=== PATIENT | male | born 1960 | race Asian ===

== ENCOUNTER 2016-10-24 14:50 | Outpatient (CLI) | END 2016-10-24 14:51 | disposition home or self-care (01) ==

== ENCOUNTER 2016-10-30 12:35 | Outpatient (CLI) | payer OTHER | END 2016-10-30 12:36 | disposition home or self-care (01) | DX: D68.59 Other primary thrombophilia (principal) ==

== ENCOUNTER 2016-12-23 08:00 | Outpatient (CLI) | payer OTHER | END 2016-12-23 08:01 | disposition home or self-care (01) | DX: D68.59 Other primary thrombophilia (principal) ==

== ENCOUNTER 2017-03-04 14:27 | Outpatient (CLI) | payer OTHER | END 2017-03-04 14:28 | disposition home or self-care (01) | DX: D68.59 Other primary thrombophilia (principal) ==

== ENCOUNTER 2017-05-23 14:43 | Outpatient (CLI) | payer OTHER | END 2017-05-23 14:44 | disposition home or self-care (01) | LOC: LAB.F 14:43 | PROVIDERS: ATTEND Family Medicine | DX: D68.59 Other primary thrombophilia (principal) | CPT/HCPCS: 85610 ==

== ENCOUNTER 2017-08-11 08:00 | Outpatient (CLI) | payer OTHER | END 2017-08-11 08:01 | disposition home or self-care (01) | LOC: LAB.S 08:00 | PROVIDERS: ATTEND Family Medicine | DX: D68.59 Other primary thrombophilia (principal) | CPT/HCPCS: 85610 ==

== ENCOUNTER 2017-10-24 08:00 | Outpatient (CLI) | payer OTHER | END 2017-10-24 08:01 | disposition home or self-care (01) | LOC: LAB.F 08:00 | PROVIDERS: ATTEND Family Medicine | DX: D68.59 Other primary thrombophilia (principal) | CPT/HCPCS: 85610 ==

== ENCOUNTER 2017-12-01 10:38 | Outpatient (CLI) | payer OTHER | END 2017-12-01 10:39 | disposition home or self-care (01) | LOC: LAB.S 10:38 | PROVIDERS: ATTEND Family Medicine | DX: D68.59 Other primary thrombophilia (principal) | CPT/HCPCS: 85610 ==

== ENCOUNTER 2017-12-15 08:00 | Outpatient (CLI) | payer OTHER | END 2017-12-15 08:01 | disposition home or self-care (01) | LOC: LAB.S 08:00 | PROVIDERS: ATTEND Family Medicine | DX: D68.59 Other primary thrombophilia (principal) | CPT/HCPCS: 85610 ==

== ENCOUNTER 2018-01-05 11:22 | Outpatient (CLI) | payer OTHER | END 2018-01-05 11:23 | disposition home or self-care (01) | LOC: LAB.S 11:22 | PROVIDERS: ATTEND Family Medicine | DX: D68.59 Other primary thrombophilia (principal) | CPT/HCPCS: 85610 ==

== ENCOUNTER 2018-01-07 08:00 | Outpatient (CLI) | payer OTHER ==
[2018-01-07 12:09] LABS: BASOPHILS # (AUTO) 0.1 10^3/uL (0.0-0.1); BASOPHILS % (AUTO) 1.3 %; EOSINOPHILS # (AUTO) 0.6 10^3/uL (0.0-0.7); EOSINOPHILS % (AUTO) 9.3 %; HGB - HEMOGLOBIN 12.3 g/dL (14.0-18.0); LYMPHOCYTES # (AUTO) 1.4 10^3/uL (1.5-3.5); LYMPHOCYTES % (AUTO) 22.3 %; MEAN CORPUSCULAR HEMOGLOBIN 28.5 pg (27.0-31.0); MEAN CORPUSCULAR HGB CONC 33.3 g/dL (32.0-36.0); MEAN CORPUSCULAR VOLUME 85.7 fL (80.0-94.0); MEAN PLATELET VOLUME 8.5 fL (7.4-11.4); MONOCYTES # (AUTO) 0.5 10^3/uL (0.0-1.0); NEUTROPHILS # (AUTO) 3.9 10^3/uL (1.5-6.6); NEUTROPHILS % (AUTO) 60.1 %; PLT - PLATELET COUNT 208 10^3/uL (130-450); RED CELL DISTRIBUTION WIDTH 14.7 % (12.0-15.0); WHITE BLOOD COUNT 6.5 x10^3/uL (4.8-10.8)
== END 2018-01-07 08:01 | disposition home or self-care (01) ==
LOC: LAB.R 08:00
PROVIDERS: ATTEND Internal Medicine
DX: L03.115 Cellulitis of right lower limb (principal)
CPT/HCPCS: 80048; 85025; 85651; 86140

== ENCOUNTER 2018-01-09 08:00 | Outpatient (CLI) | payer OTHER | END 2018-01-09 08:01 | disposition home or self-care (01) | LOC: LAB.F 08:00 | PROVIDERS: ATTEND Family Medicine | DX: D68.59 Other primary thrombophilia (principal) | CPT/HCPCS: 85610 ==

== ENCOUNTER 2018-01-12 08:00 | Outpatient (CLI) | payer OTHER | END 2018-01-12 08:01 | disposition home or self-care (01) | LOC: LAB.S 08:00 | PROVIDERS: ATTEND Family Medicine | DX: D68.59 Other primary thrombophilia (principal) | CPT/HCPCS: 85610 ==

== ENCOUNTER 2018-01-14 08:00 | Outpatient (CLI) | payer OTHER ==
[2018-01-14 10:46] LABS: BASOPHILS # (AUTO) 0.1 10^3/uL (0.0-0.1); BASOPHILS % (AUTO) 0.9 %; EOSINOPHILS # (AUTO) 0.6 10^3/uL (0.0-0.7); EOSINOPHILS % (AUTO) 9.3 %; HGB - HEMOGLOBIN 12.4 g/dL (14.0-18.0); LYMPHOCYTES # (AUTO) 1.3 10^3/uL (1.5-3.5); LYMPHOCYTES % (AUTO) 20.7 %; MEAN CORPUSCULAR HEMOGLOBIN 28.7 pg (27.0-31.0); MEAN CORPUSCULAR HGB CONC 33.6 g/dL (32.0-36.0); MEAN CORPUSCULAR VOLUME 85.4 fL (80.0-94.0); MEAN PLATELET VOLUME 8.3 fL (7.4-11.4); MONOCYTES # (AUTO) 0.5 10^3/uL (0.0-1.0); MONOCYTES % (AUTO) 7.9 %; NEUTROPHILS # (AUTO) 3.7 10^3/uL (1.5-6.6); NEUTROPHILS % (AUTO) 61.2 %; PLT - PLATELET COUNT 203 10^3/uL (130-450); RED BLOOD COUNT 4.32 10^6/uL (4.70-6.10); RED CELL DISTRIBUTION WIDTH 15.1 % (12.0-15.0); WHITE BLOOD COUNT 6.1 x10^3/uL (4.8-10.8)
[2018-01-14 11:09] LABS: BUN - BLOOD UREA NITROGEN 12 mg/dL (6-20); CALCIUM 8.4 mg/dL (8.5-10.3); CARBON DIOXIDE - CO2 25 mmol/L (21-32); CHLORIDE 106 mmol/L (101-111); CREATININE 0.7 mg/dL (0.6-1.2); CRP - C-REACTIVE PROTEIN < 1.0 mg/dL (0-1.0); GFR - MDRD 117 (>89); GLUCOSE 136 mg/dL (70-100); SODIUM 136 mmol/L (135-145); VANCOMYCIN,TROUGH 13.7 ug/mL (5.0-15.0)
== END 2018-01-14 08:01 | disposition home or self-care (01) ==
LOC: LAB.R 08:00
PROVIDERS: ATTEND Internal Medicine
DX: L03.115 Cellulitis of right lower limb (principal)
CPT/HCPCS: 80048; 85025; 85651; 86140

== ENCOUNTER 2018-01-21 12:20 | Outpatient (CLI) | payer OTHER | END 2018-01-21 12:21 | disposition home or self-care (01) | LOC: LAB 12:20 | PROVIDERS: ATTEND Family Medicine | DX: I82.401 Acute embolism and thrombosis of unspecified deep veins of right lower extremity (principal); Z86.711 Personal history of pulmonary embolism; D68.59 Other primary thrombophilia | CPT/HCPCS: 36415; 81240; 81599; 85303; 85306; 85307; 85610 ==

== ENCOUNTER 2018-01-26 08:00 | Outpatient (CLI) | payer OTHER | END 2018-01-26 08:01 | disposition home or self-care (01) | LOC: LAB.S 08:00 | PROVIDERS: ATTEND Family Medicine | DX: D68.59 Other primary thrombophilia (principal) | CPT/HCPCS: 85610 ==

== ENCOUNTER 2018-01-30 08:00 | Outpatient (CLI) | payer OTHER | END 2018-01-30 08:01 | disposition home or self-care (01) | LOC: LAB.F 08:00 | PROVIDERS: ATTEND Family Medicine | DX: D68.59 Other primary thrombophilia (principal) | CPT/HCPCS: 85610 ==

== ENCOUNTER 2018-01-30 15:24 | Outpatient (CLI) | payer OTHER | END 2018-01-30 15:25 | disposition home or self-care (01) | LOC: LAB.F 15:24 | PROVIDERS: ATTEND Family Medicine | DX: D68.59 Other primary thrombophilia (principal) ==

== ENCOUNTER 2018-02-02 12:09 | Outpatient (CLI) | payer OTHER | END 2018-02-02 12:10 | LOC: LAB.S 12:09 | PROVIDERS: ATTEND Family Medicine | DX: D68.59 Other primary thrombophilia (principal) | CPT/HCPCS: 85610 ==

== ENCOUNTER 2018-02-06 11:04 | Outpatient (CLI) | payer OTHER | END 2018-02-06 11:05 | disposition home or self-care (01) | LOC: LAB.F 11:04 | PROVIDERS: ATTEND Family Medicine | DX: D68.59 Other primary thrombophilia (principal) | CPT/HCPCS: 85610 ==

== ENCOUNTER 2018-02-16 13:36 | Outpatient (CLI) | payer OTHER | END 2018-02-16 13:37 | disposition home or self-care (01) | LOC: LAB.S 13:36 | PROVIDERS: ATTEND Family Medicine | DX: D68.59 Other primary thrombophilia (principal) | CPT/HCPCS: 85610 ==

== ENCOUNTER 2018-02-23 09:00 | Outpatient (CLI) | payer OTHER | END 2018-02-23 09:01 | disposition home or self-care (01) | LOC: LAB.S 09:00 | PROVIDERS: ATTEND Family Medicine | DX: D68.59 Other primary thrombophilia (principal) | CPT/HCPCS: 85610 ==

== ENCOUNTER 2018-03-02 11:15 | Outpatient (CLI) | payer OTHER | END 2018-03-02 11:16 | disposition home or self-care (01) | LOC: LAB.S 11:15 | PROVIDERS: ATTEND Family Medicine | DX: D68.59 Other primary thrombophilia (principal) | CPT/HCPCS: 85610 ==

== ENCOUNTER 2018-03-10 12:03 | Outpatient (CLI) | payer OTHER | END 2018-03-10 12:04 | disposition home or self-care (01) | LOC: LAB.F 12:03 | PROVIDERS: ATTEND Family Medicine | DX: D68.59 Other primary thrombophilia (principal) | CPT/HCPCS: 85610 ==

== ENCOUNTER 2018-03-23 14:10 | Outpatient (CLI) | payer OTHER | END 2018-03-23 14:11 | disposition home or self-care (01) | LOC: LAB.S 14:10 | PROVIDERS: ATTEND Family Medicine | DX: D68.59 Other primary thrombophilia (principal) | CPT/HCPCS: 85610 ==

== ENCOUNTER 2018-04-08 08:00 | Outpatient (CLI) | payer OTHER | END 2018-04-08 08:01 | LOC: LAB.R 08:00 | PROVIDERS: ATTEND Family Medicine | DX: R19.7 Diarrhea, unspecified (principal); R50.9 Fever, unspecified | CPT/HCPCS: 82274; 87045; 87046; 87177; 87209; 87493 ==

== ENCOUNTER 2018-05-15 15:06 | Outpatient (CLI) | payer OTHER | END 2018-05-15 15:07 | disposition home or self-care (01) | LOC: LAB.F 15:06 | PROVIDERS: ATTEND Family Medicine | DX: D68.59 Other primary thrombophilia (principal) | CPT/HCPCS: 85610 ==

== ENCOUNTER 2018-06-05 08:00 | Outpatient (CLI) | payer OTHER | END 2018-06-05 08:01 | disposition home or self-care (01) | LOC: LAB.F 08:00 | PROVIDERS: ATTEND Family Medicine | DX: D68.59 Other primary thrombophilia (principal) | CPT/HCPCS: 85610 ==

== ENCOUNTER 2018-06-15 10:17 | Outpatient (CLI) | payer OTHER | END 2018-06-15 10:18 | disposition home or self-care (01) | LOC: LAB.S 10:17 | PROVIDERS: ATTEND Family Medicine | DX: D68.59 Other primary thrombophilia (principal) | CPT/HCPCS: 85610 ==

== ENCOUNTER 2018-07-10 14:52 | Outpatient (CLI) | payer OTHER | END 2018-07-10 14:53 | disposition home or self-care (01) | LOC: LAB.F 14:52 | PROVIDERS: ATTEND Family Medicine | DX: D68.59 Other primary thrombophilia (principal) | CPT/HCPCS: 85610 ==

== ENCOUNTER 2018-07-17 13:44 | Outpatient (CLI) | payer OTHER | END 2018-07-17 13:45 | disposition home or self-care (01) | LOC: LAB.F 13:44 | PROVIDERS: ATTEND Family Medicine | DX: D68.59 Other primary thrombophilia (principal) | CPT/HCPCS: 85610 ==

== ENCOUNTER 2018-07-27 11:49 | Outpatient (CLI) | payer OTHER | END 2018-07-27 11:50 | disposition home or self-care (01) | LOC: LAB.S 11:49 | PROVIDERS: ATTEND Family Medicine | DX: D68.59 Other primary thrombophilia (principal) | CPT/HCPCS: 85610 ==

== ENCOUNTER 2018-09-04 14:31 | Outpatient (CLI) | payer OTHER | END 2018-09-04 14:32 | disposition home or self-care (01) | LOC: LAB.F 14:31 | PROVIDERS: ATTEND Family Medicine | DX: D68.59 Other primary thrombophilia (principal) | CPT/HCPCS: 85610 ==

== ENCOUNTER 2018-10-05 13:39 | Outpatient (CLI) | payer OTHER | END 2018-10-05 23:59 | disposition home or self-care (01) | LOC: LAB.S 13:39 | PROVIDERS: ATTEND Family Medicine | DX: D68.59 Other primary thrombophilia (principal) | CPT/HCPCS: 85610 ==

== ENCOUNTER 2018-12-08 15:18 | Outpatient (CLI) | payer OTHER | END 2018-12-08 15:19 | disposition home or self-care (01) | LOC: LAB.F 15:18 | PROVIDERS: ATTEND Family Medicine | DX: D68.59 Other primary thrombophilia (principal) | CPT/HCPCS: 85610 ==

== ENCOUNTER 2018-12-24 13:24 | Outpatient (CLI) | payer OTHER | END 2018-12-24 13:25 | disposition home or self-care (01) | LOC: LAB.F 13:24 | PROVIDERS: ATTEND Family Medicine | DX: D68.59 Other primary thrombophilia (principal) | CPT/HCPCS: 85610 ==

== ENCOUNTER 2019-01-08 07:14 | Outpatient (CLI) | payer OTHER ==
--- NOTE | 2019-01-08 18:20 | Ultrasound Report ---
Reason: LOCALIZED SWELLING,MASS AND LUMP, NECK Procedure Date: 01/08/2019 Accession Number: [id number] / [id number] Procedure: US - Head or Neck Soft Tissue CPT Code: FULL RESULT: EXAM: NECK ULTRASOUND EXAM DATE: 01/08/2019 08:13 AM. CLINICAL HISTORY: Swelling, mass and lump in right neck. COMPARISON: None. TECHNIQUE: Real-time sonographic imaging was performed by the computer systems hardware analyst utilizing color-flow. Multiple account maintenance representative static images were saved for review. FINDINGS: A right supraclavicular soft tissue mass is present at the site of palpable abnormality. It is smoothly contoured and has echotexture similar to adjacent fat and likely represents a lipoma. It measures 3.9 x 1.0 x 2.9 cm. IMPRESSION: 3.9 cm right supraclavicular subcutaneous lump, most likely a lipoma. This could be confirmed with CT or MR imaging if desired. [facility]
== END 2019-01-08 07:15 | disposition home or self-care (01) ==
LOC: DI 07:14
PROVIDERS: ATTEND Family Medicine
DX: R22.1 Localized swelling, mass and lump, neck (principal)
CPT/HCPCS: 76536

== ENCOUNTER 2019-03-01 08:00 | Outpatient (CLI) | payer OTHER | END 2019-03-01 23:59 | disposition home or self-care (01) | LOC: LAB.S 08:00 | PROVIDERS: ATTEND Family Medicine | DX: D68.59 Other primary thrombophilia (principal) | CPT/HCPCS: 85610 ==

== ENCOUNTER 2019-03-08 08:00 | Outpatient (CLI) | payer OTHER | END 2019-03-08 23:59 | disposition home or self-care (01) | LOC: LAB.S 08:00 | PROVIDERS: ATTEND Family Medicine | DX: D68.59 Other primary thrombophilia (principal) | CPT/HCPCS: 85610 ==

== ENCOUNTER 2019-03-22 08:00 | Outpatient (CLI) | payer OTHER | END 2019-03-22 23:59 | disposition home or self-care (01) | LOC: LAB.S 08:00 | PROVIDERS: ATTEND Family Medicine | DX: D68.59 Other primary thrombophilia (principal) | CPT/HCPCS: 85610 ==

== ENCOUNTER 2019-03-29 08:00 | Outpatient (CLI) | payer OTHER | END 2019-03-29 23:59 | disposition home or self-care (01) | LOC: LAB.S 08:00 | PROVIDERS: ATTEND Family Medicine | DX: D68.59 Other primary thrombophilia (principal) | CPT/HCPCS: 85610 ==

== ENCOUNTER 2019-08-10 13:32 | Outpatient (CLI) | payer OTHER | END 2019-08-10 13:33 | disposition home or self-care (01) | LOC: LAB.S 13:32 | PROVIDERS: ATTEND Family Medicine | DX: D68.59 Other primary thrombophilia (principal) | CPT/HCPCS: 85610 ==

== ENCOUNTER 2019-10-01 15:16 | Outpatient (CLI) | payer OTHER | END 2019-10-01 15:17 | disposition home or self-care (01) | LOC: LAB.S 15:16 | PROVIDERS: ATTEND Family Medicine | DX: D68.59 Other primary thrombophilia (principal) | CPT/HCPCS: 85610 ==

== ENCOUNTER 2019-11-19 14:30 | Outpatient (CLI) | payer OTHER | END 2019-11-19 14:31 | disposition home or self-care (01) | LOC: LAB.S 14:30 | PROVIDERS: ATTEND Family Medicine | DX: D68.59 Other primary thrombophilia (principal) | CPT/HCPCS: 85610 ==

== ENCOUNTER 2019-11-29 14:59 | Outpatient (CLI) | payer OTHER | END 2019-11-29 15:00 | disposition home or self-care (01) | LOC: LAB.S 14:59 | PROVIDERS: ATTEND Family Medicine | DX: D68.59 Other primary thrombophilia (principal) | CPT/HCPCS: 85610 ==

== ENCOUNTER 2019-12-16 08:58 | Outpatient (CLI) | payer OTHER | END 2019-12-16 08:59 | disposition home or self-care (01) | LOC: LAB.S 08:58 | PROVIDERS: ATTEND Family Medicine | DX: D68.59 Other primary thrombophilia (principal) | CPT/HCPCS: 85610 ==

== ENCOUNTER 2020-02-03 08:00 | Outpatient (CLI) | payer OTHER | END 2020-02-03 23:59 | disposition home or self-care (01) | LOC: LAB 08:00 | PROVIDERS: ATTEND Family Medicine | DX: D68.59 Other primary thrombophilia (principal) | CPT/HCPCS: 85610 ==

== ENCOUNTER 2020-04-07 13:39 | Outpatient (CLI) | payer OTHER ==
[2020-04-07 20:29] LABS: HB2 TOTAL 13.1 g/dL; HEMOGLOBIN A1C 0.95 g/dL; HEMOGLOBIN A1C % 8.8 % (4.6-6.2)
[2020-04-07 20:39] LABS: ALBUMIN 3.7 g/dL (3.2-5.5); ALBUMIN/GLOBULIN RATIO 1.3 (1.0-2.2); ALKALINE PHOSPHATASE 71 IU/L (42-121); ALT ALANINE AMINOTRANSFERASE 25 IU/L (10-60); AST ASPARTATE AMINOTRANSFERASE 17 IU/L (10-42); BILIRUBIN,TOTAL 0.8 mg/dL (0.2-1.0); BUN - BLOOD UREA NITROGEN 19 mg/dL (6-20); CALCIUM 8.5 mg/dL (8.5-10.3); CARBON DIOXIDE - CO2 27 mmol/L (21-32); CHLORIDE 105 mmol/L (101-111); CHOL/HDL RATIO 3.1 (<5.0); CHOLESTEROL 136 mg/dL; CREATININE 0.9 mg/dL (0.6-1.2); GLUCOSE 224 mg/dL (70-100); HDL CHOLESTEROL 44 mg/dL; LDL CHOLESTEROL,CALCULATED 57 mg/dL; LDL/HDL RATIO 1.3 (<3.6); SODIUM 135 mmol/L (135-145); TOTAL PROTEIN 6.6 g/dL (6.7-8.2); VLDL CHOLESTEROL 35 mg/dL
== END 2020-04-07 13:40 | disposition home or self-care (01) ==
LOC: LAB.S 13:39
PROVIDERS: ATTEND Family Medicine
DX: D68.59 Other primary thrombophilia (principal); E78.5 Hyperlipidemia, unspecified; I10 Essential (primary) hypertension; E11.69 Type 2 diabetes mellitus with other specified complication
CPT/HCPCS: 36415; 80053; 80061; 83036; 83721; 85610

== ENCOUNTER 2020-07-06 14:30 | Outpatient (CLI) | payer OTHER | END 2020-07-06 14:31 | disposition home or self-care (01) | LOC: LAB.S 14:30 | PROVIDERS: ATTEND Family Medicine | DX: D68.59 Other primary thrombophilia (principal) | CPT/HCPCS: 85610 ==

== ENCOUNTER 2020-08-03 16:32 | Outpatient (CLI) | payer OTHER ==
--- NOTE | 2020-08-03 17:16 | XRAY Report ---
PROCEDURE: Hip w/Pelvis 2-3V RT INDICATIONS: RADICULOPATHY LUMBAR REGION TECHNIQUE: AP pelvis with lateral view(s) of the right hip(s). COMPARISON: None. FINDINGS: Bones: No fractures or dislocations. Moderate to severe right hip joint osteophytic changes are see n with joint space narrowing and subchondral sclerosis. No evidence of avascular necrosis of femoral head. Pelvic ring appears intact. No suspicious bony lesions. Soft tissues: The visualized bowel gas pattern is normal. No suspicious soft tissue calcifications. IMPRESSION: Moderate to severe right hip joint osteoarthritis. No gross acute right hip fracture or d islocation. No evidence of avascular necrosis. Reviewed by: Christiano Mansfield MD on 08/03/2020 5:15 PM PDT Approved by: Christiano Mansfield MD on 08/03/2020 5:15 PM PDT Station ID: [id number]
== END 2020-08-03 16:33 | disposition home or self-care (01) ==
LOC: DI.S 16:32
PROVIDERS: ATTEND Nurse Practitioner Family
DX: M54.16 Radiculopathy, lumbar region (principal); M16.11 Unilateral primary osteoarthritis, right hip

== ENCOUNTER 2020-10-25 13:17 | Outpatient (CLI) | payer OTHER | END 2020-10-25 13:18 | disposition home or self-care (01) | LOC: LAB.S 13:17 | PROVIDERS: ATTEND Family Medicine | DX: D68.59 Other primary thrombophilia (principal) | CPT/HCPCS: 85610 ==

== ENCOUNTER 2020-10-26 12:56 | Outpatient (CLI) | payer OTHER ==
[2020-10-26 15:56] LABS: BASOPHILS # (AUTO) 0.1 10^3/uL (0.0-0.1); BASOPHILS % (AUTO) 0.7 %; EOSINOPHILS # (AUTO) 0.3 10^3/uL (0.0-0.7); EOSINOPHILS % (AUTO) 3.2 %; HGB - HEMOGLOBIN 13.4 g/dL (14.0-18.0); LYMPHOCYTES # (AUTO) 1.5 10^3/uL (1.5-3.5); LYMPHOCYTES % (AUTO) 17.6 %; MEAN CORPUSCULAR HEMOGLOBIN 28.6 pg (27.0-31.0); MEAN CORPUSCULAR VOLUME 89.5 fL (80.0-94.0); MONOCYTES # (AUTO) 0.5 10^3/uL (0.0-1.0); MONOCYTES % (AUTO) 6.4 %; NEUTROPHILS % (AUTO) 71.7 %; PLT - PLATELET COUNT 258 10^3/uL (130-450); RED BLOOD COUNT 4.68 10^6/uL (4.70-6.10); RED CELL DISTRIBUTION WIDTH 13.6 % (12.0-15.0); WHITE BLOOD COUNT 8.3 x10^3/uL (4.8-10.8)
[2020-10-26 16:09] LABS: ALBUMIN 3.9 g/dL (3.2-5.5); ALBUMIN/GLOBULIN RATIO 1.5 (1.0-2.2); BILIRUBIN,TOTAL 0.6 mg/dL (0.2-1.0); CALCIUM 9.4 mg/dL (8.5-10.3); TOTAL PROTEIN 6.5 g/dL (6.7-8.2)
[2020-10-26 19:05] LABS: HEMOGLOBIN A1c% 9.9 % (4.27-6.07)
== END 2020-10-26 12:57 | disposition home or self-care (01) ==
LOC: LAB.S 12:56
PROVIDERS: ATTEND Nurse Practitioner Family
DX: Z01.812 Encounter for preprocedural laboratory examination (principal)
CPT/HCPCS: 36415; 80053; 83036; 85025

== ENCOUNTER 2021-01-06 14:39 | Outpatient (CLI) | payer OTHER ==
[2021-01-06 18:54] LABS: BASOPHILS % (AUTO) 0.4 %; EOSINOPHILS # (AUTO) 0.3 10^3/uL (0.0-0.7); EOSINOPHILS % (AUTO) 2.4 %; HCT - HEMATOCRIT 41.4 % (42.0-52.0); LYMPHOCYTES # (AUTO) 1.6 10^3/uL (1.5-3.5); LYMPHOCYTES % (AUTO) 14.1 %; MEAN CORPUSCULAR HEMOGLOBIN 28.6 pg (27.0-31.0); MEAN CORPUSCULAR HGB CONC 31.4 g/dL (32.0-36.0); MEAN PLATELET VOLUME 10.9 fL (7.4-11.4); MONOCYTES # (AUTO) 0.7 10^3/uL (0.0-1.0); MONOCYTES % (AUTO) 6.3 %; NEUTROPHILS # (AUTO) 8.7 10^3/uL (1.5-6.6); NEUTROPHILS % (AUTO) 76.5 %; PLT - PLATELET COUNT 274 10^3/uL (130-450); RED BLOOD COUNT 4.55 10^6/uL (4.70-6.10); RED CELL DISTRIBUTION WIDTH 14.2 % (12.0-15.0); WHITE BLOOD COUNT 11.3 x10^3/uL (4.8-10.8)
[2021-01-06 19:04] LABS: ALBUMIN 3.7 g/dL (3.2-5.5); ALBUMIN/GLOBULIN RATIO 1.1 (1.0-2.2); BILIRUBIN,TOTAL 0.4 mg/dL (0.2-1.0); CALCIUM 9.2 mg/dL (8.5-10.3); CREATININE 1.1 mg/dL (0.6-1.2); POTASSIUM 4.7 mmol/L (3.5-5.0)
[2021-01-06 22:43] LABS: ESTIMATED AVERAGE GLUCOSE 192 mg/dL (70-100); HEMOGLOBIN A1c% 8.3 % (4.27-6.07)
== END 2021-01-06 14:40 | disposition home or self-care (01) ==
LOC: LAB.S 14:39
PROVIDERS: ATTEND Family Medicine
DX: Z01.812 Encounter for preprocedural laboratory examination (principal); D68.59 Other primary thrombophilia
CPT/HCPCS: 36415; 80053; 83036; 85025; 85610

== ENCOUNTER 2021-01-18 15:33 | Outpatient (CLI) | payer OTHER ==
--- OUTSIDE RECORDS SUMMARY | 2021-01-24 01:14 | EXTERNAL MEDICAL SUMMARY RPT | Continuity of Care Document ---
:1960 Demographics Phone Unavailable Preferred Language Unknown Marital Status Unknown Gnosticism Affiliation Unknown Race Unknown Ethnic Group Unknown Author Organization [facility] Address [address] [place] [address] Phone Problems date description facility [id number] [facility] Social History date description facility [id number]
== END 2021-01-18 15:34 | disposition home or self-care (01) ==
LOC: LAB.S 15:33
PROVIDERS: ATTEND Family Medicine
DX: D68.59 Other primary thrombophilia (principal)
CPT/HCPCS: 85610

== ENCOUNTER 2021-02-05 16:01 | Outpatient (CLI) | payer OTHER | END 2021-02-05 16:02 | disposition home or self-care (01) | LOC: LAB.S 16:01 | PROVIDERS: ATTEND Family Medicine | DX: D68.59 Other primary thrombophilia (principal) | CPT/HCPCS: 85610 ==

== ENCOUNTER 2021-02-09 14:56 | Outpatient (CLI) | payer OTHER | END 2021-02-09 14:57 | disposition home or self-care (01) | LOC: LAB.S 14:56 | PROVIDERS: ATTEND Family Medicine | DX: D68.59 Other primary thrombophilia (principal) | CPT/HCPCS: 85610 ==

== ENCOUNTER 2021-02-11 | Outpatient (CLI) | payer OTHER | END 2021-02-11 17:43 | disposition short-term general hospital (02) | DX: R25.1 Tremor, unspecified (principal) | CPT/HCPCS: A0425; A0429 ==

== ENCOUNTER 2021-02-25 15:05 | Outpatient (CLI) | payer OTHER | END 2021-02-25 15:06 | disposition home or self-care (01) | LOC: LAB.S 15:05 | PROVIDERS: ATTEND Family Medicine | DX: D68.59 Other primary thrombophilia (principal) | CPT/HCPCS: 36416; 85610 ==

== ENCOUNTER 2021-03-22 17:56 | Outpatient (CLI) | payer OTHER | END 2021-03-22 17:57 | disposition home or self-care (01) | LOC: LAB.S 17:56 | PROVIDERS: ATTEND Family Medicine | DX: D68.59 Other primary thrombophilia (principal) | CPT/HCPCS: 36416; 85610 ==

== ENCOUNTER 2021-03-24 15:41 | Outpatient (CLI) | payer OTHER | END 2021-03-24 15:42 | disposition home or self-care (01) | LOC: LAB.S 15:41 | PROVIDERS: ATTEND Family Medicine | DX: D68.59 Other primary thrombophilia (principal) | CPT/HCPCS: 36416; 85610 ==

== ENCOUNTER 2021-04-06 15:11 | Outpatient (CLI) | payer OTHER | END 2021-04-06 15:12 | disposition home or self-care (01) | LOC: LAB.S 15:11 | PROVIDERS: ATTEND Family Medicine | DX: D68.59 Other primary thrombophilia (principal) | CPT/HCPCS: 36416; 85610 ==

== ENCOUNTER 2021-04-10 18:18 | Outpatient (CLI) | payer OTHER | END 2021-04-10 18:19 | disposition home or self-care (01) | LOC: LAB.S 18:18 | PROVIDERS: ATTEND Family Medicine | DX: D68.59 Other primary thrombophilia (principal) | CPT/HCPCS: 36416; 85610 ==

== ENCOUNTER 2021-04-19 15:45 | Outpatient (CLI) | payer OTHER | END 2021-04-19 15:46 | disposition home or self-care (01) | LOC: LAB.S 15:45 | PROVIDERS: ATTEND Family Medicine | DX: D68.59 Other primary thrombophilia (principal) | CPT/HCPCS: 36416; 85610 ==

== ENCOUNTER 2021-04-24 18:47 | Outpatient (CLI) | payer OTHER | END 2021-04-24 18:48 | disposition home or self-care (01) | LOC: LAB.S 18:47 | PROVIDERS: ATTEND Family Medicine | DX: D68.59 Other primary thrombophilia (principal) | CPT/HCPCS: 36416; 85610 ==

== ENCOUNTER 2021-05-02 16:42 | Outpatient (CLI) | payer OTHER | END 2021-05-02 16:43 | disposition home or self-care (01) | LOC: LAB.S 16:42 | PROVIDERS: ATTEND Family Medicine | DX: D68.59 Other primary thrombophilia (principal) | CPT/HCPCS: 36416; 85610 ==

== ENCOUNTER 2021-06-02 10:10 | Outpatient (CLI) | payer OTHER | END 2021-06-02 10:11 | disposition home or self-care (01) | LOC: LAB.S 10:10 | PROVIDERS: ATTEND Family Medicine | DX: D68.59 Other primary thrombophilia (principal) | CPT/HCPCS: 36416; 85610 ==

== ENCOUNTER 2021-06-19 15:17 | Outpatient (CLI) | payer OTHER | END 2021-06-19 15:18 | disposition home or self-care (01) | LOC: LAB.S 15:17 | PROVIDERS: ATTEND Family Medicine | DX: D68.59 Other primary thrombophilia (principal) | CPT/HCPCS: 36416; 85610 ==

== ENCOUNTER 2021-07-06 14:54 | Outpatient (CLI) | payer OTHER ==
[2021-07-06 21:13] LABS: ESTIMATED AVERAGE GLUCOSE 154 mg/dL (70-100)
== END 2021-07-06 14:55 | disposition home or self-care (01) ==
LOC: LAB.S 14:54
PROVIDERS: ATTEND Family Medicine
DX: E11.8 Type 2 diabetes mellitus with unspecified complications (principal); D68.59 Other primary thrombophilia
CPT/HCPCS: 36415; 36416; 83036; 85610

== ENCOUNTER 2021-08-14 13:20 | Outpatient (CLI) | payer OTHER | END 2021-08-14 13:21 | disposition home or self-care (01) | LOC: LAB.S 13:20 | PROVIDERS: ATTEND Family Medicine | DX: D68.59 Other primary thrombophilia (principal); Z53.9 Procedure and treatment not carried out, unspecified reason ==

== ENCOUNTER 2021-08-14 14:39 | Outpatient (CLI) | payer OTHER ==
--- NOTE | 2021-08-15 12:10 | XRAY Report ---
PROCEDURE: Ribs w/PA Chest LT INDICATIONS: LEFT SIDED RIB PAIN TECHNIQUE: 2 views of the left ribs were acquired, along with a single view chest. COMPARISON: None FINDINGS: Surgical changes and devices: None. Bones and chest wall: No fractures or dislocations. No suspicious bony lesions. Overlying soft tis sues appear unremarkable. Lungs and pleura: No pleural effusions or pneumothorax. Lungs appear clear. Mediastinum: Mediastinal contours appear normal. Heart size is normal. IMPRESSION: No acute finding. Reviewed by: Duong Richey MD on 08/15/2021 12:09 PM PDT Approved by: Duong Richey MD on 08/15/2021 12:09 PM PDT Station ID: [id number]
== END 2021-08-14 23:59 ==
LOC: DI.S 14:39
PROVIDERS: ATTEND Physician Assistant Medical
DX: R07.81 Pleurodynia (principal); D68.59 Other primary thrombophilia
CPT/HCPCS: 36416; 85610

== ENCOUNTER 2021-10-11 13:06 | Outpatient (CLI) | payer OTHER | END 2021-10-11 13:07 | disposition home or self-care (01) | LOC: LAB.S 13:06 | PROVIDERS: ATTEND Family Medicine | DX: D68.59 Other primary thrombophilia (principal) | CPT/HCPCS: 36416; 85610 ==

== ENCOUNTER 2021-12-18 15:01 | Outpatient (CLI) | payer OTHER | END 2021-12-18 15:02 | disposition home or self-care (01) | LOC: LAB.S 15:01 | PROVIDERS: ATTEND Family Medicine | DX: D68.59 Other primary thrombophilia (principal) | CPT/HCPCS: 36416; 85610 ==

== ENCOUNTER 2022-06-27 14:15 | Outpatient (CLI) | payer OTHER ==
[2022-06-27 19:46] LABS: BASOPHILS # (AUTO) 0.1 10^3/uL (0.0-0.1); BASOPHILS % (AUTO) 0.9 %; EOSINOPHILS # (AUTO) 0.3 10^3/uL (0.0-0.7); EOSINOPHILS % (AUTO) 3.2 %; HCT - HEMATOCRIT 43.3 % (42.0-52.0); HGB - HEMOGLOBIN 13.9 g/dL (14.0-18.0); LYMPHOCYTES # (AUTO) 1.5 10^3/uL (1.5-3.5); LYMPHOCYTES % (AUTO) 18.7 %; MEAN CORPUSCULAR HEMOGLOBIN 29.8 pg (27.0-31.0); MEAN CORPUSCULAR HGB CONC 32.1 g/dL (32.0-36.0); MEAN CORPUSCULAR VOLUME 92.7 fL (80.0-94.0); MEAN PLATELET VOLUME 11.1 fL (7.4-11.4); MONOCYTES # (AUTO) 0.5 10^3/uL (0.0-1.0); MONOCYTES % (AUTO) 6.8 %; NEUTROPHILS # (AUTO) 5.5 10^3/uL (1.5-6.6); NEUTROPHILS % (AUTO) 70.1 %; PLT - PLATELET COUNT 302 10^3/uL (130-450); RED BLOOD COUNT 4.67 10^6/uL (4.70-6.10); RED CELL DISTRIBUTION WIDTH 14.4 % (12.0-15.0); WHITE BLOOD COUNT 7.8 x10^3/uL (4.8-10.8)
[2022-06-27 20:07] LABS: % IRON SATURATION 22 % (20-50); ALBUMIN 4.2 g/dL (3.2-5.5); ALBUMIN/GLOBULIN RATIO 1.6 (1.0-2.2); ALKALINE PHOSPHATASE 55 IU/L (42-121); ALT ALANINE AMINOTRANSFERASE 23 IU/L (10-60); AST ASPARTATE AMINOTRANSFERASE 21 IU/L (10-42); BILIRUBIN,TOTAL 0.6 mg/dL (0.2-1.0); BUN - BLOOD UREA NITROGEN 13 mg/dL (6-20); CALCIUM 9.3 mg/dL (8.5-10.3); CARBON DIOXIDE - CO2 28 mmol/L (21-32); CHLORIDE 105 mmol/L (101-111); CHOL/HDL RATIO 4.6 (<5.0); CHOLESTEROL 234 mg/dL; GFR - MDRD 76 (>89); GLUCOSE 101 mg/dL (70-100); HDL CHOLESTEROL 51 mg/dL; IRON 71 ug/dL (45-182); LDL CHOLESTEROL,CALCULATED 148 mg/dL; LDL/HDL RATIO 2.9 (<3.6); POTASSIUM 4.2 mmol/L (3.5-5.0); SODIUM 140 mmol/L (135-145); TOTAL IRON BINDING CAPACITY 318 ug/dL (250-450); TOTAL PROTEIN 6.9 g/dL (6.7-8.2); TRANSFERRIN 227 mg/dL (180-329); TRIGLYCERIDES 175 mg/dL; VLDL CHOLESTEROL 35 mg/dL
[2022-06-27 21:14] LABS: ESTIMATED AVERAGE GLUCOSE 143 mg/dL (70-100); HEMOGLOBIN A1c% 6.6 % (4.27-6.07)
== END 2022-06-27 14:16 | disposition home or self-care (01) ==
LOC: LAB.S 14:15
PROVIDERS: ATTEND Family Medicine
DX: D50.9 Iron deficiency anemia, unspecified (principal); I10 Essential (primary) hypertension; E78.5 Hyperlipidemia, unspecified; E11.8 Type 2 diabetes mellitus with unspecified complications
CPT/HCPCS: 36415; 80053; 80061; 82728; 83036; 83540; 83721; 84466; 85025

== ENCOUNTER 2023-01-15 08:00 | Outpatient (CLI) | payer OTHER ==
[2023-01-15 18:57] LABS: BASOPHILS # (AUTO) 0.1 10^3/uL (0.0-0.1); EOSINOPHILS # (AUTO) 0.3 10^3/uL (0.0-0.7); EOSINOPHILS % (AUTO) 3.3 %; HCT - HEMATOCRIT 34.2 % (42.0-52.0); HGB - HEMOGLOBIN 10.8 g/dL (14.0-18.0); LYMPHOCYTES # (AUTO) 1.7 10^3/uL (1.5-3.5); LYMPHOCYTES % (AUTO) 22.5 %; MEAN CORPUSCULAR HEMOGLOBIN 27.6 pg (27.0-31.0); MEAN CORPUSCULAR HGB CONC 31.6 g/dL (32.0-36.0); MEAN CORPUSCULAR VOLUME 87.5 fL (80.0-94.0); MEAN PLATELET VOLUME 11.8 fL (7.4-11.4); MONOCYTES # (AUTO) 0.7 10^3/uL (0.0-1.0); MONOCYTES % (AUTO) 9.6 %; NEUTROPHILS # (AUTO) 4.8 10^3/uL (1.5-6.6); NEUTROPHILS % (AUTO) 63.3 %; PLT - PLATELET COUNT 345 10^3/uL (130-450); RED BLOOD COUNT 3.91 10^6/uL (4.70-6.10); RED CELL DISTRIBUTION WIDTH 15.1 % (12.0-15.0); WHITE BLOOD COUNT 7.6 x10^3/uL (4.8-10.8)
[2023-01-15 19:22] LABS: CALCIUM 8.6 mg/dL (8.5-10.3); CREATININE 0.8 mg/dL (0.6-1.2); POTASSIUM 4.1 mmol/L (3.5-5.0)
== END 2023-01-15 23:59 | disposition home or self-care (01) ==
LOC: LAB.R 08:00
PROVIDERS: ATTEND Internal Medicine Infectious Disease
DX: M86.672 Other chronic osteomyelitis, left ankle and foot (principal)
CPT/HCPCS: 80048; 82550; 85025

== ENCOUNTER 2023-01-21 08:00 | Outpatient (CLI) | payer OTHER ==
[2023-01-21 18:47] LABS: BASOPHILS # (AUTO) 0.1 10^3/uL (0.0-0.1); BASOPHILS % (AUTO) 1.1 %; EOSINOPHILS # (AUTO) 0.3 10^3/uL (0.0-0.7); EOSINOPHILS % (AUTO) 3.3 %; HCT - HEMATOCRIT 39.8 % (42.0-52.0); HGB - HEMOGLOBIN 12.9 g/dL (14.0-18.0); LYMPHOCYTES # (AUTO) 1.8 10^3/uL (1.5-3.5); LYMPHOCYTES % (AUTO) 24.6 %; MEAN CORPUSCULAR HEMOGLOBIN 28.3 pg (27.0-31.0); MEAN CORPUSCULAR HGB CONC 32.4 g/dL (32.0-36.0); MEAN CORPUSCULAR VOLUME 87.3 fL (80.0-94.0); MEAN PLATELET VOLUME 11.7 fL (7.4-11.4); MONOCYTES # (AUTO) 0.4 10^3/uL (0.0-1.0); MONOCYTES % (AUTO) 5.9 %; NEUTROPHILS # (AUTO) 4.8 10^3/uL (1.5-6.6); NEUTROPHILS % (AUTO) 64.8 %; PLT - PLATELET COUNT 270 10^3/uL (130-450); RED BLOOD COUNT 4.56 10^6/uL (4.70-6.10); RED CELL DISTRIBUTION WIDTH 15.6 % (12.0-15.0); WHITE BLOOD COUNT 7.5 x10^3/uL (4.8-10.8)
[2023-01-21 19:00] LABS: BUN - BLOOD UREA NITROGEN 13 mg/dL (6-20); CALCIUM 8.8 mg/dL (8.5-10.3); CARBON DIOXIDE - CO2 25 mmol/L (21-32); CHLORIDE 107 mmol/L (101-111); CK- CREATINE KINASE 133 IU/L (22-269); CREATININE 0.8 mg/dL (0.6-1.2); GFR - MDRD 98 (>89); GLUCOSE 195 mg/dL (70-100); POTASSIUM 3.8 mmol/L (3.5-5.0); SODIUM 140 mmol/L (135-145)
[2023-01-21 19:01] LABS: CRP - C-REACTIVE PROTEIN < 1.0 mg/dL (0-1.0)
== END 2023-01-21 23:59 | disposition home or self-care (01) ==
LOC: LAB.R 08:00
PROVIDERS: ATTEND Internal Medicine Infectious Disease
DX: M86.672 Other chronic osteomyelitis, left ankle and foot (principal)
CPT/HCPCS: 80048; 82550; 85025; 85651; 86140

== ENCOUNTER 2023-02-04 08:00 | Outpatient (CLI) | payer OTHER ==
[2023-02-04 17:48] LABS: BASOPHILS # (AUTO) 0.1 10^3/uL (0.0-0.1); BASOPHILS % (AUTO) 0.8 %; EOSINOPHILS # (AUTO) 0.3 10^3/uL (0.0-0.7); EOSINOPHILS % (AUTO) 4.3 %; HCT - HEMATOCRIT 41.5 % (42.0-52.0); HGB - HEMOGLOBIN 13.3 g/dL (14.0-18.0); LYMPHOCYTES # (AUTO) 1.8 10^3/uL (1.5-3.5); LYMPHOCYTES % (AUTO) 24.3 %; MEAN CORPUSCULAR HEMOGLOBIN 28.7 pg (27.0-31.0); MEAN CORPUSCULAR VOLUME 89.4 fL (80.0-94.0); MEAN PLATELET VOLUME 11.4 fL (7.4-11.4); MONOCYTES # (AUTO) 0.5 10^3/uL (0.0-1.0); MONOCYTES % (AUTO) 6.8 %; NEUTROPHILS # (AUTO) 4.6 10^3/uL (1.5-6.6); NEUTROPHILS % (AUTO) 63.5 %; PLT - PLATELET COUNT 268 10^3/uL (130-450); RED BLOOD COUNT 4.64 10^6/uL (4.70-6.10); RED CELL DISTRIBUTION WIDTH 15.9 % (12.0-15.0); WHITE BLOOD COUNT 7.2 x10^3/uL (4.8-10.8)
[2023-02-04 18:03] LABS: BUN - BLOOD UREA NITROGEN 13 mg/dL (6-20); CALCIUM 8.9 mg/dL (8.5-10.3); CARBON DIOXIDE - CO2 25 mmol/L (21-32); CHLORIDE 107 mmol/L (101-111); CK- CREATINE KINASE 234 IU/L (22-269); CREATININE 0.8 mg/dL (0.6-1.2); GFR - MDRD 98 (>89); GLUCOSE 112 mg/dL (70-100); POTASSIUM 3.9 mmol/L (3.5-5.0); SODIUM 136 mmol/L (135-145)
[2023-02-04 18:04] LABS: CRP - C-REACTIVE PROTEIN < 1.0 mg/dL (0-1.0)
== END 2023-02-04 23:59 | disposition home or self-care (01) ==
LOC: LAB.R 08:00
PROVIDERS: ATTEND Internal Medicine
DX: M86.672 Other chronic osteomyelitis, left ankle and foot (principal)
CPT/HCPCS: 80048; 82550; 85025; 85651; 86140

== ENCOUNTER 2023-09-24 14:34 | Outpatient (CLI) | payer OTHER ==
[2023-09-24 20:07] LABS: CALCIUM 9.1 mg/dL (8.5-10.3); CREATININE 0.9 mg/dL (0.6-1.3); POTASSIUM 4.1 mmol/L (3.5-4.5)
== END 2023-09-24 14:35 | disposition home or self-care (01) ==
LOC: LAB.S 14:34
PROVIDERS: ATTEND Internal Medicine
DX: E11.628 Type 2 diabetes mellitus with other skin complications (principal); L08.9 Local infection of the skin and subcutaneous tissue, unspecified
CPT/HCPCS: 36415; 80048

== ENCOUNTER 2023-10-21 15:02 | Outpatient (CLI) | payer OTHER | END 2023-10-21 23:59 | disposition short-term general hospital (02) | LOC: EMS 15:02 | DX: M79.671 Pain in right foot (principal) | CPT/HCPCS: A0425; A0429 ==

== ENCOUNTER 2023-11-17 08:00 | Outpatient (CLI) | payer OTHER ==
[2023-11-17 17:39] LABS: BASOPHILS # (AUTO) 0.1 10^3/uL (0.0-0.1); EOSINOPHILS % (AUTO) 11.3 %; HCT - HEMATOCRIT 38.9 % (42.0-52.0); HGB - HEMOGLOBIN 12.2 g/dL (14.0-18.0); LYMPHOCYTES # (AUTO) 1.5 10^3/uL (1.5-3.5); LYMPHOCYTES % (AUTO) 17.8 %; MEAN CORPUSCULAR HEMOGLOBIN 27.8 pg (27.0-31.0); MEAN CORPUSCULAR HGB CONC 31.4 g/dL (32.0-36.0); MEAN CORPUSCULAR VOLUME 88.6 fL (80.0-94.0); MEAN PLATELET VOLUME 11.7 fL (7.4-11.4); MONOCYTES # (AUTO) 0.5 10^3/uL (0.0-1.0); NEUTROPHILS # (AUTO) 5.3 10^3/uL (1.5-6.6); NEUTROPHILS % (AUTO) 63.7 %; PLT - PLATELET COUNT 219 10^3/uL (130-450); RED BLOOD COUNT 4.39 10^6/uL (4.70-6.10); RED CELL DISTRIBUTION WIDTH 15.9 % (12.0-15.0); WHITE BLOOD COUNT 8.4 x10^3/uL (4.8-10.8)
[2023-11-17 19:02] LABS: CALCIUM 8.9 mg/dL (8.5-10.3); CREATININE 0.9 mg/dL (0.6-1.3); POTASSIUM 4.2 mmol/L (3.5-4.5)
== END 2023-11-17 23:59 | disposition home or self-care (01) ==
LOC: LAB.R 08:00
PROVIDERS: ATTEND Internal Medicine
DX: E11.65 Type 2 diabetes mellitus with hyperglycemia (principal); M86.271 Subacute osteomyelitis, right ankle and foot
CPT/HCPCS: 80048; 82550; 85025; 86140

== ENCOUNTER 2023-12-08 09:37 | Outpatient (CLI) | payer OTHER ==
[2023-12-08 15:31] LABS: BASOPHILS # (AUTO) 0.1 10^3/uL (0.0-0.1); BASOPHILS % (AUTO) 1.1 %; EOSINOPHILS # (AUTO) 0.4 10^3/uL (0.0-0.7); EOSINOPHILS % (AUTO) 5.6 %; HCT - HEMATOCRIT 43.7 % (42.0-52.0); HGB - HEMOGLOBIN 13.6 g/dL (14.0-18.0); LYMPHOCYTES # (AUTO) 1.6 10^3/uL (1.5-3.5); LYMPHOCYTES % (AUTO) 25.1 %; MEAN CORPUSCULAR HEMOGLOBIN 28.9 pg (27.0-31.0); MEAN CORPUSCULAR HGB CONC 31.1 g/dL (32.0-36.0); MEAN PLATELET VOLUME 11.1 fL (7.4-11.4); MONOCYTES # (AUTO) 0.6 10^3/uL (0.0-1.0); MONOCYTES % (AUTO) 9.3 %; NEUTROPHILS # (AUTO) 3.7 10^3/uL (1.5-6.6); NEUTROPHILS % (AUTO) 58.6 %; PLT - PLATELET COUNT 280 10^3/uL (130-450); WHITE BLOOD COUNT 6.3 x10^3/uL (4.8-10.8)
== END 2023-12-08 09:38 | disposition home or self-care (01) ==
LOC: LAB.S 09:37
PROVIDERS: ATTEND Internal Medicine
DX: E11.628 Type 2 diabetes mellitus with other skin complications (principal); L08.9 Local infection of the skin and subcutaneous tissue, unspecified
CPT/HCPCS: 36415; 85025

== ENCOUNTER 2024-03-02 08:00 | Outpatient (CLI) | payer OTHER ==
[2024-03-02 18:22] LABS: BASOPHILS # (AUTO) 0.1 10^3/uL (0.0-0.1); BASOPHILS % (AUTO) 0.7 %; EOSINOPHILS # (AUTO) 0.4 10^3/uL (0.0-0.7); EOSINOPHILS % (AUTO) 5.3 %; HCT - HEMATOCRIT 35.5 % (42.0-52.0); HGB - HEMOGLOBIN 11.3 g/dL (14.0-18.0); LYMPHOCYTES # (AUTO) 1.5 10^3/uL (1.5-3.5); LYMPHOCYTES % (AUTO) 18.4 %; MEAN CORPUSCULAR HEMOGLOBIN 27.7 pg (27.0-31.0); MEAN CORPUSCULAR HGB CONC 31.8 g/dL (32.0-36.0); MEAN PLATELET VOLUME 11.1 fL (7.4-11.4); MONOCYTES # (AUTO) 0.5 10^3/uL (0.0-1.0); MONOCYTES % (AUTO) 6.4 %; NEUTROPHILS # (AUTO) 5.5 10^3/uL (1.5-6.6); NEUTROPHILS % (AUTO) 68.5 %; PLT - PLATELET COUNT 276 10^3/uL (130-450); RED BLOOD COUNT 4.08 10^6/uL (4.70-6.10); RED CELL DISTRIBUTION WIDTH 13.4 % (12.0-15.0); WHITE BLOOD COUNT 8.1 x10^3/uL (4.8-10.8)
[2024-03-02 18:34] LABS: CALCIUM 8.6 mg/dL (8.5-10.3); CREATININE 0.9 mg/dL (0.6-1.3); CRP - C-REACTIVE PROTEIN 8.3 mg/dL (<0.5)
== END 2024-03-02 23:59 | disposition home or self-care (01) ==
LOC: LAB.R 08:00
PROVIDERS: ATTEND Internal Medicine
DX: M86.271 Subacute osteomyelitis, right ankle and foot (principal)
CPT/HCPCS: 80048; 85025; 85651; 86140